=== PATIENT | male | born 1990 | race Hispanic/Latino ===

== ENCOUNTER 2018-10-25 09:22 | Emergency (ER) | payer OTHER ==
[~2018-10-25] VITALS: Ht 185.4 cm; Wt 107.3 kg
[2018-10-25] MEDS ORDERED: NAPR250T4 PO (09:28)
[2018-10-25] MEDS ORDERED: ACETAMINOPHEN 500 MG TAB PO ONE (10:45)
[2018-10-25 11:01] VITALS: BP 140/91
--- NOTE | 2018-10-25 18:49 | REP ---
LEFT ANKLE, FOUR VIEWS: ANKLE: There is no evidence of an acute fracture, dislocation or intrinsic bone disease. IMPRESSION: No fracture or dislocation. Electronically Signed by Justin Owens MD 10/26/2018 11:40 P
--- NOTE | 2018-10-25 18:51 | REP ---
LEFT LOWER LEG, AP AND LATERAL: TIBIA/FIBULA: There is no evidence of an acute fracture, dislocation or intrinsic bone disease. IMPRESSION: No fracture or dislocation. Electronically Signed by Justin Owens MD 10/26/2018 11:41 P
--- NOTE | 2018-10-25 18:51 | REP ---
LEFT FOOT, FOUR VIEWS: FOOT: There is no evidence of an acute fracture, dislocation or intrinsic bone disease. IMPRESSION: No fracture or dislocation. Electronically Signed by Justin Owens MD 10/26/2018 11:41 P
== END 2018-10-25 11:12 | disposition home or self-care (01) ==
LOC: M ED 09:22
DX: S86.912A Strain of unspecified muscle(s) and tendon(s) at lower leg level, left leg, initial encounter (principal); W19.XXXA Unspecified fall, initial encounter; Y92.89 Other specified places as the place of occurrence of the external cause; Y93.02 Activity, running; Y99.1 Military activity; Z72.0 Tobacco use